=== PATIENT | male | born 1935 | race Caucasian/White ===

== ENCOUNTER → 2016-09-19 | Day surgery (SDC) | payer MEDICARE, BC ==
--- NOTE | 2016-09-19 14:13 | US ---
ULTRASOUND GUIDED FNA THYROID BIOPSY: CLINICAL HISTORY: Thyroid nodule FINDINGS: The patient rescheduled the biopsy appointment.
== END | disposition home or self-care (01) ==
LOC: RADPROMAIN 11:58
PROVIDERS: ATTEND Family Medicine
DX: Z53.20 Procedure and treatment not carried out because of patient's decision for unspecified reasons (principal)
CPT/HCPCS: 76536

== ENCOUNTER 2016-09-30 07:37 | Day surgery (SDC) | payer MEDICARE, BC ==
[2016-09-30 08:31] VITALS: RESP 14; TEMP 98.3
[2016-09-30 09:24] VITALS: BP 152/72; PULSE 62
--- NOTE | 2016-09-30 10:16 | US ---
EXAMINATION TYPE: US FNA thyroid DATE OF EXAM: 09/30/2016 COMPARISON: NONE HISTORY: Thyroid nodule. Maximal barrier technique was utilized. After informed consent, skin overlying the lesion was locali zed with ultrasound and the overlying skin prepped and draped. Ultrasound was utilized using sterile technique. Lidocaine was used for local anesthesia. Five passes with a 25-gauge needle were made int o the nodule and aspirated specimen was submitted to cytology. Following the procedure hemostasis ac hieved. No immediate complication. The patient discharged in stable condition. IMPRESSION: STATUS POST ULTRASOUND GUIDED FINE NEEDLE ASPIRATION OF THYROID NODULE, PATHOLOGY IS PEND ING. THIS PROCEDURE WAS PERFORMED BY THE UNDERSIGNED.
== END 2016-09-30 09:25 | disposition home or self-care (01) ==
LOC: RADPROMAIN 07:37
PROVIDERS: ATTEND Family Medicine
DX: E04.1 Nontoxic single thyroid nodule (principal)
CPT/HCPCS: 10022; 76942; 88173; 88305

== ENCOUNTER 2018-03-09 19:20 | Emergency (ER) | payer MEDICARE, BC ==
[2018-03-09 19:27] VITALS: TEMP 98.8
[2018-03-09] MEDS ORDERED: KETOROLAC 30 MG/ML 1 ML VIAL IVP STA (19:33)
[2018-03-09] MEDS ORDERED: SODIUM CHLORIDE 0.9% 1,000 ML IV STA ×2 (19:33)
[2018-03-09] MEDS ORDERED: IPRATROPIUM-ALBUTEROL 3 ML NEB INHALATION STA (19:34)
[2018-03-09] MEDS ORDERED: ACETAMINOPHEN IV (For NPO) 1,000 MG in EMPTY BAG 1 BAG IVPB STA (19:34)
--- NOTE | 2018-03-09 19:35 | ED ---
Chest Pain HPI - General Chief Complaint: Chest Pain Stated Complaint: Chest pain Time Seen by Provider: 03/09/18 19:32 Source: patient, RN notes reviewed, old records reviewed Mode of arrival: wheelchair Limitations: no limitations - History of Present Illness Initial Comments: This is a 2-year-old female the ER for evasive chest pain. Patient states she' s had some persistent chest pain ever since receiving the flu shot breathing well for about 2-3 weeks. She denies any fever cough or congestion. Patient just is complaining of generalized body aches and pains muscle aches and pains. Never with a prior similar issue of having flu shot in the past. No recent change in medications no sick contacts or travel history MD Complaint: chest pain, other (Body aches) -: week(s) (2) Onset: during rest, during exertion Pain Location: epigastric Pain Radiation: none Severity scale (1-10): 2 Quality: aching Consistency: constant Improves With: nothing Worsens With: nothing Context: recent illness, other (Flu shot) Anginal Symptoms: nausea Other Symptoms: fever Treatments Prior to Arrival: none - Related Data Home Medications Medication Instructions Recorded Confirmed Aspirin [Adult Low Dose Aspirin EC] 81 mg PO DAILY 10/04/15 03/09/18 Escitalopram [Lexapro] 5 mg PO DAILY 10/04/15 03/09/18 Finasteride [Proscar] 5 mg PO DAILY 10/04/15 03/09/18 Lisinopril [Zestril] 10 mg PO DAILY 10/04/15 03/09/18 Metoprolol Succinate (ER) [Toprol 50 mg PO HS 10/04/15 03/09/18 Xl] Tamsulosin [Flomax] 0.4 mg PO HS 10/04/15 03/09/18 Atorvastatin [Lipitor] 40 mg PO HS 03/09/18 03/09/18 Ergocalciferol (Vitamin D2) 50,000 unit PO FR 03/09/18 03/09/18 [Vitamin D2] Omeprazole [PriLOSEC] 20 mg PO AC-BID 03/09/18 03/09/18 Allergies Allergy/AdvReac Type Severity Reaction Status Date / Time ciprofloxacin Allergy Unknown Verified 03/09/18 20:00 Sulfa (Sulfonamide Allergy urine Verified 03/09/18 20:00 Antibiotics) crystallized Review of Systems ROS Statement: Those systems with pertinent positive or pertinent negative responses have been documented in the HPI. ROS Other: All systems not noted in ROS Statement are negative. EKG Findings - EKG Comments: EKG Findings:: EKG shows sinus rate of 70, NH 152, QRS 78, QTc 424 Past Medical History Past Medical History: Asthma, COPD, Deep Vein Thrombosis (DVT), GERD/Reflux, Hypertension, Myocardial Infarction ([place]), Prostate Disorder, Pulmonary Embolus ( [place]) Additional Past Medical History / Comment(s): Benign prostate hypertrophy Last Myocardial Infarction Date:: 2013 History of Any Multi-Drug Resistant Organisms: None Reported Past Surgical History: Heart Catheterization, Hernia Repair Additional Past Surgical History / Comment(s): prostate biopsy Past Anesthesia/Blood Transfusion Reactions: No Reported Reaction Past Psychological History: Depression Smoking Status: Never smoker Past Alcohol Use History: None Reported Past Drug Use History: None Reported - Past Family History Father Family Medical History: Cancer Additional Family Medical History / Comment(s): prostate cancer Mother Family Medical History: Cancer General Exam Limitations: no limitations General appearance: alert, in no apparent distress Head exam: Present: atraumatic, normocephalic, normal inspection Eye exam: Present: normal appearance, PERRL, EOMI. Absent: scleral icterus, conjunctival injection, periorbital swelling ENT exam: Present: normal exam, mucous membranes moist Neck exam: Present: normal inspection. Absent: tenderness, meningismus, lymphadenopathy Respiratory exam: Present: normal lung sounds bilaterally. Absent: respiratory distress, wheezes, rales, rhonchi, stridor Cardiovascular Exam: Present: regular rate, normal rhythm, normal heart sounds. Absent: systolic murmur, diastolic murmur, rubs, gallop, clicks GI/Abdominal exam: Present: soft, normal bowel sounds. Absent: distended, tenderness, guarding, rebound, rigid Extremities exam: Present: normal inspection, full ROM, normal capillary refill. Absent: tenderness, pedal edema, joint swelling, calf tenderness Back exam: Present: normal inspection Neurological exam: Present: alert, oriented X3, CN II-XII intact Psychiatric exam: Present: normal affect, normal mood Skin exam: Present: warm, dry, intact, normal color. Absent: rash Course Vital Signs 03/09/18 03/09/18 03/09/18 19:22 19:31 19:40 Temperature 98.8 F Pulse Rate 76 75 Respiratory 18 17 Rate Blood Pressure 136/74 144/82 O2 Sat by Pulse 95 95 Oximetry 03/09/18 03/09/18 03/09/18 19:50 20:00 20:02 Temperature Pulse Rate 82 88 Respiratory 18 16 Rate Blood Pressure 144/82 144/82 O2 Sat by Pulse Oximetry 03/09/18 03/09/18 03/09/18 20:10 20:20 20:30 Temperature Pulse Rate 78 81 Respiratory 14 14 25 H Rate Blood Pressure 139/68 139/68 139/68 O2 Sat by Pulse Oximetry 03/09/18 03/09/18 03/09/18 20:40 20:50 21:00 Temperature Pulse Rate 101 H 99 Respiratory 21 17 Rate Blood Pressure 121/60 121/60 121/60 O2 Sat by Pulse 97 96 Oximetry 03/09/18 03/09/18 03/09/18 21:10 21:20 21:30 Temperature Pulse Rate 102 H 108 H Respiratory 12 17 22 Rate Blood Pressure 128/60 128/60 128/60 O2 Sat by Pulse 97 97 98 Oximetry 03/09/18 22:10 Temperature Pulse Rate 100 Respiratory 20 Rate Blood Pressure 130/68 O2 Sat by Pulse 96 Oximetry - Reevaluation(s) Reevaluation #1: Medical record is reviewed Patient informed of results would like to be discharged home Chest Pain MDM - MDM 82 male the ER for evaluation of chest pain and symptoms that started after having recent flu shot. Patient states symptoms of been resolved throughout hospital stay would not like to stay in hospital for observation will be discharged home Disposition Clinical Impression: Chest pain Disposition: HOME SELF-CARE Condition: Good Instructions: Chest Pain (ED) Is patient prescribed a controlled substance at d/c from ED?: No Referrals: Joelle Renteria DO [Primary Care Provider] - 1-2 days
[2018-03-09 19:53] LABS: Basophils % (A) 0 %; Eosinophils # (A) 0.5 k/uL (0-0.7); Eosinophils % (A) 4 %; HCT 45.6 % (39.0-53.0); HGB 15.4 gm/dL (13.0-17.5); Lymphocytes # (A) 1.2 k/uL (1.0-4.8); Lymphocytes % (A) 10 %; MCH 32.1 pg (25.0-35.0); MCHC 33.8 g/dL (31.0-37.0); Mean Platelet Volume 8.7; Monocytes # (A) 0.6 k/uL (0-1.0); Monocytes % (A) 5 %; Neutrophils # (A) 9.8 k/uL (1.3-7.7); Neutrophils % (A) 81 %; Platelet Count 223 k/uL (150-450); WBC 12.1 k/uL (3.8-10.6)
[2018-03-09 20:08] LABS: Calcium 9.7 mg/dL (8.4-10.2); Creatine Kinase 85 U/L (55-170); Magnesium 1.9 mg/dL (1.6-2.3); Potassium 4.3 mmol/L (3.5-5.1); Total Bilirubin 0.9 mg/dL (0.2-1.3); Total Protein 6.5 g/dL (6.3-8.2)
[2018-03-09 20:14] LABS: D-Dimer 0.45 mg/L FEU (<0.60); Prothrombin Time 10.2 sec (9.0-12.0)
[2018-03-09 20:20] LABS: Creatine Kinase MB 1.2 ng/mL (0.0-2.4); Troponin I <0.012 ng/mL (0.000-0.034)
[2018-03-09 20:22] LABS: Partial Thromboplastin Time 21.9 sec (22.0-30.0)
--- NOTE | 2018-03-09 20:51 | XR ---
EXAMINATION TYPE: XR chest 2V DATE OF EXAM: 03/09/2018 COMPARISON: NONE HISTORY: chest pain TECHNIQUE: Frontal and lateral views of the chest are obtained. FINDINGS: There is no focal air space opacity, pleural effusion, or pneumothorax seen. The cardiac silhouette size is within normal limits. There are overlying cardiac leads. Right hemidiaphragm is elevated. Aorta is dense. There are coronary artery calcifications. The osseous structures are intact . IMPRESSION: No acute cardiopulmonary process.
[2018-03-09 22:22] VITALS: BP 130/68; PULSE 100; RESP 20
--- NOTE | 2018-03-11 04:18 | CDI ---
Documentation Clarification OP Dear Dr. Rosa Sevilla Please do addendum to ED report for missing HPI and Physical examination. Thank you, Harris Vazquez Nuclear Physicist If you have any questions, please contact Development Geologist at [phone] [facility]
== END 2018-03-09 22:22 | disposition home or self-care (01) ==
LOC: EC 19:20
DX: R07.9 Chest pain, unspecified (principal); R11.0 Nausea; R50.9 Fever, unspecified; K21.9 Gastro-esophageal reflux disease without esophagitis; I10 Essential (primary) hypertension; I25.2 Old myocardial infarction; N40.0 Benign prostatic hyperplasia without lower urinary tract symptoms; F32.9 Major depressive disorder, single episode, unspecified; Z79.82 Long term (current) use of aspirin; Z79.899 Other long term (current) drug therapy; Z88.1 Allergy status to other antibiotic agents; Z88.2 Allergy status to sulfonamides; Z95.818 Presence of other cardiac implants and grafts
CPT/HCPCS: 99285; 96365; 96375; 96361; 36415; 94640; 93005; 85379; 83880; 80053; 82550; 82553; 83690; 83735; 84484; 85025; 85610; 85730; 71046; J1885; J0131

== ENCOUNTER 2018-12-10 19:53 | Emergency (ER) | payer MEDICARE, BC ==
[2018-12-10] MEDS ORDERED: IBUPROFEN 600 MG TAB PO STA (20:58)
[2018-12-10] MEDS ORDERED: ACETAMINOPHEN TAB 500 MG TAB PO STA (20:58)
--- NOTE | 2018-12-10 21:03 | ED ---
General Adult HPI <Pedro Spencer - Last Filed: 12/10/18 23:26> - General Source: patient Mode of arrival: ambulatory Limitations: no limitations <Chantelle Arroyo - Last Filed: 12/11/18 01:02> - General Chief complaint: Neck Pain/Injury Stated complaint: Shoulder & neck pain Time Seen by Provider: 12/10/18 20:38 - History of Present Illness Initial comments: 83-year-old male patient presents to the emergency department today for evaluation of upper back pain and right-sided neck pain. Patient states that this started on Friday and has been worsening symptoms. Patient states he has been taking Advil at night which does a lot of him to sleep. Patient denies any known injury to the neck. States that this started on the left side radiated down his back and up the right side. Denies any radiation of the pain down his arms. Denies any numbness or tingling to the upper extremities. He states he has been coughing up white sputum. Denies any hemoptysis. States today he developed fevers or he presented here for further evaluation. Denies any history of similar symptoms. Denies any history of chronic back or neck pain. Denies any chest pain, shortness of breath, abdominal pain, nausea, or vomiting. Denies any sweats. States that he does have some difficulty with urinary retention and does take medication for this. Denies any dysuria or hematuria. Denies any diarrhea or constipation. Patient denies any recent rash, numbness, tingling, dizziness, weakness, headache, visual changes, or any other complaints. (Chantelle Arroyo) - Related Data Home Medications Medication Instructions Recorded Confirmed Aspirin [Adult Low Dose Aspirin EC] 81 mg PO DAILY 10/04/15 03/09/18 Escitalopram [Lexapro] 5 mg PO DAILY 10/04/15 03/09/18 Finasteride [Proscar] 5 mg PO DAILY 10/04/15 03/09/18 Lisinopril [Zestril] 10 mg PO DAILY 10/04/15 03/09/18 Metoprolol Succinate (ER) [Toprol 50 mg PO HS 10/04/15 03/09/18 Xl] Tamsulosin [Flomax] 0.4 mg PO HS 10/04/15 03/09/18 Atorvastatin [Lipitor] 40 mg PO HS 03/09/18 03/09/18 Ergocalciferol (Vitamin D2) 50,000 unit PO FR 03/09/18 03/09/18 [Vitamin D2] Omeprazole [PriLOSEC] 20 mg PO AC-BID 03/09/18 03/09/18 Previous Rx's Medication Instructions Recorded Azithromycin [Zithromax Z-pack] 0 mg PO DIRECTED #6 tab 12/11/18 Allergies Allergy/AdvReac Type Severity Reaction Status Date / Time ciprofloxacin Allergy Unknown Verified 03/09/18 20:00 Sulfa (Sulfonamide Allergy urine Verified 03/09/18 20:00 Antibiotics) crystallized Review of Systems ROS Other: All systems not noted in ROS Statement are negative. <Pedro Spencer - Last Filed: 12/10/18 23:26> ROS Other: All systems not noted in ROS Statement are negative. <Chantelle Arroyo - Last Filed: 12/11/18 01:02> ROS Statement: Those systems with pertinent positive or pertinent negative responses have been documented in the HPI. Past Medical History Past Medical History: Asthma, COPD, Deep Vein Thrombosis (DVT), GERD/Reflux, Hypertension, Myocardial Infarction ([place]), Prostate Disorder, Pulmonary Embolus ([place]) Additional Past Medical History / Comment(s): Benign prostate hypertrophy Last Myocardial Infarction Date:: 2013 History of Any Multi-Drug Resistant Organisms: None Reported Past Surgical History: Heart Catheterization, Hernia Repair Additional Past Surgical History / Comment(s): prostate biopsy Past Anesthesia/Blood Transfusion Reactions: No Reported Reaction Past Psychological History: Depression Smoking Status: Never smoker Past Alcohol Use History: None Reported Past Drug Use History: None Reported - Past Family History Father Family Medical History: Cancer Additional Family Medical History / Comment(s): prostate cancer Mother Family Medical History: Cancer <Chantelle Arroyo - Last Filed: 12/11/18 01:02> General Exam Limitations: no limitations General appearance: alert, in no apparent distress, other (Physical well- developed, well-nourished elderly male patient in no acute distress. Vital signs upon presentation are temperature 101.4F, pulse 85, respirations 18, blood pressure 168/79, pulse ox 96% on room air.) Eye exam: Present: normal appearance, PERRL, EOMI. Absent: scleral icterus, conjunctival injection, periorbital swelling ENT exam: Present: normal exam, normal oropharynx, mucous membranes moist, TM's normal bilaterally Neck exam: Present: normal inspection, full ROM (Increased pain with movement). Absent: tenderness, meningismus, lymphadenopathy Respiratory exam: Present: normal lung sounds bilaterally. Absent: respiratory distress, wheezes, rales, rhonchi, stridor Cardiovascular Exam: Present: normal rhythm, tachycardia, normal heart sounds. Absent: systolic murmur, diastolic murmur, rubs, gallop, clicks GI/Abdominal exam: Present: soft, normal bowel sounds. Absent: distended, tenderness, guarding, rebound, rigid Back exam: Present: normal inspection. Absent: vertebral tenderness Neurological exam: Present: alert, oriented X3, CN II-XII intact Psychiatric exam: Present: normal affect, normal mood Skin exam: Present: warm, dry, intact, normal color. Absent: rash <Chantelle Arroyo - Last Filed: 12/11/18 01:02> Course <Pedro Spencer - Last Filed: 12/10/18 23:26> Vital Signs 12/10/18 12/10/18 12/10/18 20:12 20:23 21:18 Temperature 101.4 F H 100.3 F H Pulse Rate 85 93 93 Respiratory 18 18 16 Rate Blood Pressure 168/79 163/74 158/84 O2 Sat by Pulse 96 95 95 Oximetry 12/10/18 12/10/18 12/10/18 21:55 22:48 23:26 Temperature 99.9 F H 98.7 F Pulse Rate 84 83 88 Respiratory 18 18 18 Rate Blood Pressure 160/80 143/74 162/79 O2 Sat by Pulse 94 L 93 L 95 Oximetry 12/11/18 12/11/18 00:01 00:58 Temperature Pulse Rate 88 88 Respiratory 18 18 Rate Blood Pressure 145/73 137/72 O2 Sat by Pulse 95 95 Oximetry - Reevaluation(s) Reevaluation #1: 12/10/18 23:26 Patient reevaluated by myself, Dr. Spencer. Patient has been complaining of discomfort of his upper back and neck over the past one week. Patient did develop fever today. Patient does have some mild discomfort with flexion of the neck. Lumbar puncture performed. Verbal consent given. (Pedro Spencer) EKG Findings - EKG Comments: EKG Findings:: EKG obtained at 2120 shows normal sinus rhythm with a sinus arrhythmia. Ventricular rate is 79, IN interval 158, QRS duration 68, QT 356, QTc 408. No evidence of ST elevation or depression. <Chantelle Arroyo - Last Filed: 12/11/18 01:02> Procedures - Lumbar Puncture Consent Obtained: verbal consent Indication for Procedure: fever work up Patient Position: sitting upright/leaning forward Skin Prep: Povidone-Iodine 1% Local Anesthetic Used: Lidocaine 1% Spinal Needle Gauge: 22G Spinal Needle Length: 3in Interspace Used: L4-L5 Fluid Initially Obtained: clear Complications: none Patient Tolerated Procedure: well, no complications <Pedro Spencer - Last Filed: 12/10/18 23:26> Medical Decision Making - Lab Data Result diagrams: 12/10/18 21:15 12/10/18 21:15 <Pedro Spencer - Last Filed: 12/10/18 23:26> - Lab Data Result diagrams: 12/10/18 21:15 12/10/18 21:15 <Chantelle Arroyo - Last Filed: 12/11/18 01:02> - Lab Data Lab Results 12/10/18 12/10/18 12/10/18 Range/Units 21:15 21:15 21:15 WBC 12.9 H (3.8-10.6) k/uL RBC 4.84 (4.30-5.90) m/uL Hgb 15.8 (13.0-17.5) gm/dL Hct 46.4 (39.0-53.0) % MCV 95.8 (80.0-100.0) fL MCH 32.5 (25.0-35.0) pg MCHC 34.0 (31.0-37.0) g/dL RDW 14.8 (11.5-15.5) % Plt Count 213 (150-450) k/uL Neutrophils % 83 % Lymphocytes % 8 % Monocytes % 7 % Eosinophils % 1 % Basophils % 0 % Neutrophils # 10.7 H (1.3-7.7) k/uL Lymphocytes # 1.1 (1.0-4.8) k/uL Monocytes # 0.9 (0-1.0) k/uL Eosinophils # 0.1 (0-0.7) k/uL Basophils # 0.0 (0-0.2) k/uL PT (9.0-12.0) sec INR (<1.2) APTT (22.0-30.0) sec Sodium 139 (137-145) mmol/L Potassium 4.9 (3.5-5.1) mmol/L Chloride 103 (98-107) mmol/L Carbon Dioxide 25 (22-30) mmol/L Anion Gap 11 mmol/L BUN 24 H (9-20) mg/dL Creatinine 1.20 (0.66-1.25) mg/dL Est GFR (CKD-EPI)AfAm 65 (>60 ml/min/1.73 sqM) Est GFR (CKD-EPI)NonAf 56 (>60 ml/min/1.73 sqM) Glucose 110 H (74-99) mg/dL Plasma Lactic Acid [place] 1.2 (0.7-2.0) mmol/L Calcium 9.6 (8.4-10.2) mg/dL Total Bilirubin 1.1 (0.2-1.3) mg/dL AST 27 (17-59) U/L ALT 32 (21-72) U/L Alkaline Phosphatase 52 (38-126) U/L Troponin I (0.000-0.034) ng/mL Total Protein 7.1 (6.3-8.2) g/dL Albumin 4.3 (3.5-5.0) g/dL Urine Color Urine Appearance (Clear) Urine pH (5.0-8.0) Ur Specific [place] (1.001-1.035) Urine Protein (Negative) Urine Glucose (UA) (Negative) Urine Ketones (Negative) Urine Blood (Negative) Urine Nitrite (Negative) Urine Bilirubin (Negative) Urine Urobilinogen (<2.0) mg/dL Ur Leukocyte Esterase (Negative) CSF Tube Number CSF Volume CSF Appearance CSF Color CSF RBC (0-10) u/L CSF Tot Nucleated Cells (0-5) u/L CSF Crenated Cells % CSF Fresh RBCs % CSF Glucose (40-70) mg/dL CSF Total Protein (12-60) mg/dL 12/10/18 12/10/18 12/10/18 Range/Units 21:15 21:15 21:15 WBC (3.8-10.6) k/uL RBC (4.30-5.90) m/uL Hgb (13.0-17.5) gm/dL Hct (39.0-53.0) % MCV (80.0-100.0) fL MCH (25.0-35.0) pg MCHC (31.0-37.0) g/dL RDW (11.5-15.5) % Plt Count (150-450) k/uL Neutrophils % % Lymphocytes % % Monocytes % % Eosinophils % % Basophils % % Neutrophils # (1.3-7.7) k/uL Lymphocytes # (1.0-4.8) k/uL Monocytes # (0-1.0) k/uL Eosinophils # (0-0.7) k/uL Basophils # (0-0.2) k/uL PT 9.9 (9.0-12.0) sec INR 0.9 (<1.2) APTT 23.8 (22.0-30.0) sec Sodium (137-145) mmol/L Potassium (3.5-5.1) mmol/L Chloride (98-107) mmol/L Carbon Dioxide (22-30) mmol/L Anion Gap mmol/L BUN (9-20) mg/dL Creatinine (0.66-1.25) mg/dL Est GFR (CKD-EPI)AfAm (>60 ml/min/1.73 sqM) Est GFR (CKD-EPI)NonAf (>60 ml/min/1.73 sqM) Glucose (74-99) mg/dL Plasma Lactic Acid Mitchell (0.7-2.0) mmol/L Calcium (8.4-10.2) mg/dL Total Bilirubin (0.2-1.3) mg/dL AST (17-59) U/L ALT (21-72) U/L Alkaline Phosphatase (38-126) U/L Troponin I <0.012 (0.000-0.034) ng/mL Total Protein (6.3-8.2) g/dL Albumin (3.5-5.0) g/dL Urine Color Yellow Urine Appearance Clear (Clear) Urine pH 5.5 (5.0-8.0) Ur Specific [place] 1.026 (1.001-1.035) Urine Protein Trace H (Negative) Urine Glucose (UA) Negative (Negative) Urine Ketones Negative (Negative) Urine Blood Negative (Negative) Urine Nitrite Negative (Negative) Urine Bilirubin Negative (Negative) Urine Urobilinogen <2.0 (<2.0) mg/dL Ur Leukocyte Esterase Negative (Negative) CSF Tube Number CSF Volume CSF Appearance CSF Color CSF RBC (0-10) u/L CSF Tot Nucleated Cells (0-5) u/L CSF Crenated Cells % CSF Fresh RBCs % CSF Glucose (40-70) mg/dL CSF Total Protein (12-60) mg/dL 12/10/18 Range/Units 23:26 WBC (3.8-10.6) k/uL RBC (4.30-5.90) m/uL Hgb (13.0-17.5) gm/dL Hct (39.0-53.0) % MCV (80.0-100.0) fL MCH (25.0-35.0) pg MCHC (31.0-37.0) g/dL RDW (11.5-15.5) % Plt Count (150-450) k/uL Neutrophils % % Lymphocytes % % Monocytes % % Eosinophils % % Basophils % % Neutrophils # (1.3-7.7) k/uL Lymphocytes # (1.0-4.8) k/uL Monocytes # (0-1.0) k/uL Eosinophils # (0-0.7) k/uL Basophils # (0-0.2) k/uL PT (9.0-12.0) sec INR (<1.2) APTT (22.0-30.0) sec Sodium (137-145) mmol/L Potassium (3.5-5.1) mmol/L Chloride (98-107) mmol/L Carbon Dioxide (22-30) mmol/L Anion Gap mmol/L BUN (9-20) mg/dL Creatinine (0.66-1.25) mg/dL Est GFR (CKD-EPI)AfAm (>60 ml/min/1.73 sqM) Est GFR (CKD-EPI)NonAf (>60 ml/min/1.73 sqM) Glucose (74-99) mg/dL Plasma Lactic Acid Mitchell (0.7-2.0) mmol/L Calcium (8.4-10.2) mg/dL Total Bilirubin (0.2-1.3) mg/dL AST (17-59) U/L ALT (21-72) U/L Alkaline Phosphatase (38-126) U/L Troponin I (0.000-0.034) ng/mL Total Protein (6.3-8.2) g/dL Albumin (3.5-5.0) g/dL Urine Color Urine Appearance (Clear) Urine pH (5.0-8.0) Ur Specific [place] (1.001-1.035) Urine Protein (Negative) Urine Glucose (UA) (Negative) Urine Ketones (Negative) Urine Blood (Negative) Urine Nitrite (Negative) Urine Bilirubin (Negative) Urine Urobilinogen (<2.0) mg/dL Ur Leukocyte Esterase (Negative) CSF Tube Number 4 CSF Volume 1.0 CSF Appearance Clear CSF Color Colorless CSF RBC 19 H (0-10) u/L CSF Tot Nucleated Cells 3 (0-5) u/L CSF Crenated Cells 85 % CSF Fresh RBCs 15 % CSF Glucose 62 (40-70) mg/dL CSF Total Protein 57 (12-60) mg/dL Disposition <Pedro Spencer - Last Filed: 12/10/18 23:26> Is patient prescribed a controlled substance at d/c from ED?: No Time of Disposition: 01:02 <Chantelle Arroyo - Last Filed: 12/11/18 01:02> Clinical Impression: Cervical strain, Fever, Acute bronchitis Disposition: HOME SELF-CARE Condition: Good Instructions (If sedation given, give patient instructions): Cervical Strain (ED), Fever in Adults (ED), Acute Bronchitis (ED) Additional Instructions: Complete antibiotic prescription and full. Follow-up with your primary care physician for recheck tomorrow. Return to the emergency department immediately for any new, worsening, or concerning symptoms. Prescriptions: Azithromycin [Zithromax Z-pack] 0 mg PO DIRECTED #6 tab Referrals: Joelle Renteria DO [Primary Care Provider] - 1-2 days
--- NOTE | 2018-12-10 21:11 | XR ---
EXAMINATION TYPE: XR chest 2V DATE OF EXAM: 12/10/2018 COMPARISON: NONE HISTORY: Chest pain TECHNIQUE: Frontal and lateral views of the chest are obtained. FINDINGS: There is some linear density in the left lower lobe. The other lung toth are clear. Hear t size is normal. There is no heart failure. There is no pleural effusion. Bony thorax is intact. IMPRESSION: Mild atelectasis left lower lobe is new compared to old exam. Normal heart.
[2018-12-10] MEDS: SODIUM CHLORIDE 0.9% 500 ML 500 ML IV SCH ×2 (21:25→21:53)
[2018-12-10 21:37] LABS: Appearance,Urine Clear (Clear); Bilirubin,Urine Negative (Negative); Blood,Urine Negative (Negative); Color,Urine Yellow; Glucose,Urine (UA) Negative (Negative); Ketones,Urine Negative (Negative); Leukocyte Esterase,Urine Negative (Negative); Nitrite,Urine Negative (Negative); PH, Urine 5.5 (5.0-8.0); Protein,Urine Trace (Negative); Specific Gravity,Urine 1.026 (1.001-1.035); Urobilinogen,Urine <2.0 mg/dL (<2.0)
[2018-12-10 21:41] LABS: Basophils % (A) 0 %; Eosinophils # (A) 0.1 k/uL (0-0.7); Eosinophils % (A) 1 %; HCT 46.4 % (39.0-53.0); HGB 15.8 gm/dL (13.0-17.5); Lymphocytes # (A) 1.1 k/uL (1.0-4.8); Lymphocytes % (A) 8 %; MCH 32.5 pg (25.0-35.0); MCV 95.8 fL (80.0-100.0); Mean Platelet Volume 9.6; Monocytes # (A) 0.9 k/uL (0-1.0); Monocytes % (A) 7 %; Neutrophils # (A) 10.7 k/uL (1.3-7.7); Neutrophils % (A) 83 %; Platelet Count 213 k/uL (150-450); RBC 4.84 m/uL (4.30-5.90); RDW 14.8 % (11.5-15.5); WBC 12.9 k/uL (3.8-10.6)
[2018-12-10 21:48] LABS: INR 0.9 (<1.2); Partial Thromboplastin Time 23.8 sec (22.0-30.0); Prothrombin Time 9.9 sec (9.0-12.0)
[2018-12-10 21:51] LABS: Albumin 4.3 g/dL (3.5-5.0); Calcium 9.6 mg/dL (8.4-10.2); Potassium 4.9 mmol/L (3.5-5.1); Total Bilirubin 1.1 mg/dL (0.2-1.3); Total Protein 7.1 g/dL (6.3-8.2)
[2018-12-10 21:55] VITALS: RESP 18
[2018-12-10 23:28] VITALS: PULSE 88
[2018-12-10 23:59] LABS: Glucose,CSF 62 mg/dL (40-70); Total Protein,CSF 57 mg/dL (12-60)
[2018-12-11 00:06] LABS: Appearance,CSF Clear; CSF Tube Number 4; Nucleated Cells, CSF 3 u/L (0-5); Red Blood Cell,CSF 19 u/L (0-10)
[2018-12-11 00:07] LABS: Red Blood Cell, CSF Crenated 85 %; Red Blood Cell, CSF Fresh 15 %
[2018-12-11] MEDS ORDERED: AZITHROMYCIN 500 MG TAB PO STA (01:02)
[2018-12-11 01:58] VITALS: BP 139/64; TEMP 98.4
== END 2018-12-11 01:57 | disposition home or self-care (01) ==
LOC: EC 19:53
DX: S16.1XXA Strain of muscle, fascia and tendon at neck level, initial encounter (principal); J44.0 Chronic obstructive pulmonary disease with (acute) lower respiratory infection; J20.9 Acute bronchitis, unspecified; M54.6 Pain in thoracic spine; D72.829 Elevated white blood cell count, unspecified; J98.11 Atelectasis; R33.9 Retention of urine, unspecified; K21.9 Gastro-esophageal reflux disease without esophagitis; I10 Essential (primary) hypertension; I25.2 Old myocardial infarction; N40.0 Benign prostatic hyperplasia without lower urinary tract symptoms; F32.9 Major depressive disorder, single episode, unspecified; Z87.09 Personal history of other diseases of the respiratory system; Z95.818 Presence of other cardiac implants and grafts; Z79.82 Long term (current) use of aspirin; Z79.899 Other long term (current) drug therapy; Z88.1 Allergy status to other antibiotic agents; Z88.2 Allergy status to sulfonamides; X50.1XXA Overexertion from prolonged static or awkward postures, initial encounter; Y93.F2 Activity, caregiving, lifting
CPT/HCPCS: 36415; 62270; 71046; 80053; 81003; 82945; 83605; 84157; 84484; 85025; 85610; 85730; 87040; 87070; 87086; 87205; 89050; 93005; 99284

== ENCOUNTER → 2024-08-16 | Outpatient (CLI) | payer MEDICARE, BC ==
--- NOTE | 2024-08-16 10:10 | MR ---
EXAMINATION TYPE: MR Prostate wo/w con DATE OF EXAM: 08/16/2024 8:24 AM COMPARISON: None. CLINICAL INDICATION: Male, 88 years old with history of R97.20 ELEVATED PROSTATE SPECIFIC ANTIGEN [PS A]; Elevated PSA, blood in urine. TECHNIQUE: Multi-planar, multi-sequence imaging of the pelvis is performed prior to and following the uncomplicated administration of bolus intravenous gadolinium. IV Contrast: 7 mL Gadobutrol Interpretive Criteria: PI-RADS v2.1 SERUM PSA: 06-04-24 = 10.27 8-10-18 = 4.95 SURGICAL PATHOLOGY: No data available. FINDINGS: Prostatic dimensions: 7.1 x 7.4 x 5.2 cm. Ellipsoid Volume:149.10 (PSA density=0.07 ng/mL/mL) CENTRAL GLAND (Central and Transition Zones/CZ+TZ): Multiple bilateral, heterogenous appearing hypertrophic stromal nodules, without suspicious lesion. M edian lobe hypertrophy with protrusion into the base of the bladder. (PI-RADS 2) PERIPHERAL ZONE (PZ): Bilateral linear, indistinct wedgelike areas of low ADC, and low T2 signal, No evidence of masslike a bnormality, or localized perfusional hypervascularity, to further suggest a focus of clinically signi ficant prostate cancer. (PI-RADS 2) SEMINAL VESICLES (SV): Symmetric and unremarkable. PERIPROSTATIC TISSUES: Unremarkable. LYMPH NODES: No enlarged pelvic lymph node. REMAINING PELVIS: Bladder wall is within normal limits given distention. No abnormal free or organized intrapelvic fluid collection. No pathologic bowel dilation or mural thickening. Colonic diverticula are present. No hernia visualized OSSEOUS STRUCTURES: No suspicious osseous abnormality. IMPRESSION: 1. No specific features for high-risk prostate cancer. Maximum PI-RADS score: 2. 2. Substantial BPH, estimated gland volume 149.10 (PSA density=0.07 ng/mL/mL) 3. No suspicious osseous lesion. No lymphadenopathy. No evidence of prostate adenocarcinoma involving the periprostatic tissues. [facility], , 08/16/2024 10:08 AM
== END | disposition home or self-care (01) ==
LOC: RADMRIMAIN 07:15
PROVIDERS: ATTEND Family Medicine
DX: N40.0 Benign prostatic hyperplasia without lower urinary tract symptoms (principal); R97.20 Elevated prostate specific antigen [PSA]
CPT/HCPCS: 72197; A9585